=== PATIENT | male | born 1960 | race Caucasian/White ===

== ENCOUNTER → 2018-01-27 | Outpatient (CLI) | payer BC ==
--- NOTE | 2018-01-27 09:11 | CT ---
EXAMINATION TYPE: CT sinus wo con DATE OF EXAM: 01/27/2018 COMPARISON: None HISTORY: J01.90 Acute sinusitis, J32.[address] of the paranasal sinuses was performed in the axial and coronal planes. Bone and soft tissue settings are submitted. There is complete opacification of the right maxillary sinus with filling of the right ostiomeatal un it and expansion. Soft tissue also extends into the right-sided ethmoid air cells. There is mucosal t hickening at the base of the frontal sinuses and left-sided ethmoid air cells. The left maxillary sin us also demonstrates mild mucosal thickening at its base. There is also obstruction of the left ostio meatal unit. Mild mucosal thickening is noted of the sphenoid sinus. The nasal septum is midline. No bony destructive changes are seen within the field of view. IMPRESSION: Pansinusitis noted. Complete opacification right maxillary sinus without filling and expansion of the right ostiomeatal unit. Underlying polyposis is not excluded.
== END | disposition home or self-care (01) ==
LOC: RADCTMAIN 08:30
PROVIDERS: ATTEND Otolaryngology
DX: J32.4 Chronic pansinusitis (principal)
CPT/HCPCS: 70486

== ENCOUNTER → 2021-06-08 | Outpatient (CLI) | payer BC ==
--- NOTE | 2021-06-08 14:24 | ECHOS ---
STRESS ECHOCARDIOGRAM DATE OF STUDY: 06/08/2021 INDICATIONS: Chest pain. BASELINE HEART RATE: 88 BASELINE BLOOD PRESSURE: 131/79 MAXIMUM HEART RATE: 144 MAXIMUM BLOOD PRESSURE: 190/64 85% MPHR: 134 100% MPHR: 158 METS: 4.5 MAXIMUM STAGE REACHED: III TOTAL EXERCISE TIME: 7:00 CLINICAL INFORMATION: STRESS DATA: Heart rate 88, pressure 131/79 mmHg. Baseline EKG showed sinus mechanism. The patient exercised on the treadmill according to Ken protocol for a total of 7 minutes and achieved 4.5 METS. Max heart rate was 144, which is about 91% of maximum predicted heart rate, with maximum blood pressure of 190/64 mmHg. Clinically the patient did not have any symptoms of chest pain or chest discomfort during the testing or on recovery, and the EKG did not show any significant ST or T-wave abnormalities concerning for ischemia. Echocardiogram images from parasternal long axis view, parasternal short axis view, apical 4-chamber and apical 2-chamber were obtained as the baseline images at peak heart rate as well as on recovery. The echocardiogram images showed good augmentation in the left ventricular systolic function without any evidence of wall motion abnormalities concerning for ischemia. CONCLUSION: 1. Good exercise tolerance. 2. Normal EKG in response to exercise. 3. Normal echocardiogram in response to exercise. 4. Essentially normal stress test for the patient. MMODL / IJN: [id number] /
== END | disposition home or self-care (01) ==
LOC: RADNMMAIN 09:25
PROVIDERS: ATTEND Family Medicine
DX: Z01.818 Encounter for other preprocedural examination (principal); R07.9 Chest pain, unspecified
CPT/HCPCS: 93351

== ENCOUNTER 2021-06-17 12:31 | Emergency (ER) | payer BC ==
[2021-06-17 12:41] VITALS: TEMP 99
[2021-06-17 13:32] LABS: Basophils # (A) 0.1 k/uL (0-0.2); Basophils % (A) 1 %; Eosinophils # (A) 0.1 k/uL (0-0.7); Eosinophils % (A) 2 %; HCT 40.4 % (39.0-53.0); HGB 14.3 gm/dL (13.0-17.5); Lymphocytes # (A) 1.3 k/uL (1.0-4.8); Lymphocytes % (A) 27 %; MCH 32.3 pg (25.0-35.0); MCHC 35.3 g/dL (31.0-37.0); MCV 91.6 fL (80.0-100.0); Mean Platelet Volume 7.2; Monocytes # (A) 0.3 k/uL (0-1.0); Monocytes % (A) 6 %; Neutrophils # (A) 3.1 k/uL (1.3-7.7); Neutrophils % (A) 63 %; Platelet Count 267 k/uL (150-450); RBC 4.41 m/uL (4.30-5.90); RDW 12.3 % (11.5-15.5); WBC 4.9 k/uL (3.8-10.6)
--- NOTE | 2021-06-17 13:36 | XR ---
EXAMINATION TYPE: XR chest 2V DATE OF EXAM: 06/17/2021 COMPARISON: NONE HISTORY: Shortness of breath TECHNIQUE: Frontal and lateral views of the chest are obtained. FINDINGS: Scattered senescent parenchymal changes noted. No evidence for infiltrate. No evidence for atelectasis. Heart size is stable. Mediastinal structures are stable and grossly unremarkable. No evidence for hilar prominence. Degenerative changes dorsal spine. IMPRESSION: 1. No evidence for acute pulmonary disease.
[2021-06-17 13:48] LABS: ALT 14 U/L (4-49); AST 24 U/L (17-59); African American GFR (CKD) >90 (>60 ml/min/1.73 sqM); Albumin 4.4 g/dL (3.5-5.0); Alkaline Phosphatase 59 U/L (38-126); Anion Gap 11 mmol/L; Blood Urea Nitrogen 12 mg/dL (9-20); Calcium 9.8 mg/dL (8.4-10.2); Carbon Dioxide 22 mmol/L (22-30); Chloride 106 mmol/L (98-107); Glucose 99 mg/dL (74-99); Lipase 195 U/L (23-300); Non-African American GFR(CKD) 84 (>60 ml/min/1.73 sqM); Potassium 4.3 mmol/L (3.5-5.1); Sodium 139 mmol/L (137-145); Total Bilirubin 0.5 mg/dL (0.2-1.3)
[2021-06-17 13:54] LABS: Partial Thromboplastin Time 22.9 sec (22.0-30.0); Prothrombin Time 10.7 sec (9.0-12.0)
--- NOTE | 2021-06-17 15:54 | ED ---
Chest Pain HPI - General Chief Complaint: Chest Pain Stated Complaint: Chest Pain Time Seen by Provider: 06/17/21 12:51 Source: patient Mode of arrival: wheelchair Limitations: no limitations - History of Present Illness Initial Comments: 60-year-old male presents emergency room with chest pain. States he's been having the pain on and off for the past month. Upon arrival states that the pain is usually worse at night when he attempts to lay down. Describes it as a burning sensation in his chest. He additionally had an episode where he was at [employer] walking up to his seat. He had sudden onset of shooting pain in his chest which radiated into both arms. He denies that the chest pain is always with exertion. It does make him feel short of breath and nauseated. No ripping or tearing station to his back. Also has some numbness to the right hand. No fevers, chills or cough. He followed up with his primary care doctor who complete laboratory studies and sent him for an echo. Review the patient's echo demonstrates that it was normal. He denies previous history of cardiac disease or arrhythmia. No abdominal pain. No unilateral numbness or weakness. No other alleviating, precipitating or modifying factors - Related Data Home Medications Medication Instructions Recorded Confirmed Aspirin EC [Ecotrin] 325 mg PO DAILY 06/17/21 06/17/21 Multivit-Min/FA/Lycopen/Lutein 1 tab PO DAILY 06/17/21 06/17/21 [Centrum Silver Men Tablet] Previous Rx's Medication Instructions Recorded Famotidine [Pepcid] 20 mg PO BID #28 tablet 06/17/21 Omeprazole [PriLOSEC] 20 mg PO AC-BRKFST #30 cap 06/17/21 Allergies Allergy/AdvReac Type Severity Reaction Status Date / Time No Known Allergies Allergy Verified 06/17/21 13:53 Review of Systems ROS Statement: Those systems with pertinent positive or pertinent negative responses have been documented in the HPI. ROS Other: All systems not noted in ROS Statement are negative. EKG Findings - EKG Comments: EKG Findings:: EKG demonstrates sinus rhythm with a rate of 68. CT interval 204. QRS 13. QTC of 356. No acute ST segment elevations or depressions concerning for ischemic changes Past Medical History Past Medical History: No Reported History History of Any Multi-Drug Resistant Organisms: None Reported Past Surgical History: No Surgical Hx Reported Past Psychological History: Anxiety Smoking Status: Never smoker Past Alcohol Use History: Rare Past Drug Use History: Marijuana General Exam Limitations: no limitations Course Vital Signs 06/17/21 06/17/21 06/17/21 12:38 12:50 14:41 Temperature 99.0 F Pulse Rate 87 70 Pulse Rate [ 73 Family Nurse ] Respiratory 20 16 Rate Blood Pressure 120/78 O2 Sat by Pulse 95 98 Oximetry 06/17/21 16:35 Temperature Pulse Rate 71 Pulse Rate [ Family Nurse ] Respiratory 18 Rate Blood Pressure 122/46 O2 Sat by Pulse 99 Oximetry Chest Pain MDM - MDM I did review the patient's stress test from June 08. Stress echo was found to be normal. I did recommend completing laboratory studies. D-dimer 0.2. Troponin 0.016. 12-lead EKG demonstrates a Q wave in lead 3. Chest x-ray demonstrates no evidence for acute card upon her disease. Patient has remained pain-free throughout his stay in the emergency department. I did discuss the results with the patient. I do feel that the patient needs Holter monitoring due to the intermittent episodes of his discomfort. Case management does make an appointment with Dr. Sullivan. He is to see him Tuesday at 8:45 PM. I recommended Holter monitoring at this time. The patient has any new or worsening symptoms he should return to the emergency room. As his symptoms are associated with lying down flat there is a concern for reflux. Feel that the patient should start Pepcid and Prilosec daily and follow-up with Dr. Trujillo from GI. Patient agreed to the treatment plan he was discharged home in stable condition Disposition Clinical Impression: Chest pain Disposition: HOME SELF-CARE Condition: Stable Instructions (If sedation given, give patient instructions): Chest Pain (ED) Additional Instructions: Please follow up with Dr. Jackson the heart doctor on Tuesday the at 845 am. I recommend he wear a Holter monitor. If you have continued symptoms you may also benefit from an EGD by Dr. Ann Marie Jackson. Return for any new or worsening symptoms Prescriptions: Famotidine [Pepcid] 20 mg PO BID #28 tablet Omeprazole [PriLOSEC] 20 mg PO -BRKFST #30 cap Is patient prescribed a controlled substance at d/c from ED?: No Referrals: Juan Francisco Gallego MD [Primary Care Provider] - 1-2 days Ruben Jackson MD [STAFF PHYSICIAN] - 06/23/21 8:45 am Time of Disposition: 16:13
[2021-06-17 16:35] VITALS: BP 122/46; PULSE 71; RESP 18
== END 2021-06-17 16:35 | disposition home or self-care (01) ==
LOC: EC 12:31
DX: R07.9 Chest pain, unspecified (principal); Z79.82 Long term (current) use of aspirin; F41.9 Anxiety disorder, unspecified; F12.90 Cannabis use, unspecified, uncomplicated; Z72.89 Other problems related to lifestyle
CPT/HCPCS: 36415; 71046; 80053; 83690; 83735; 83880; 84443; 84484; 85025; 85379; 85610; 85730; 93005; 99285